=== PATIENT | male | born 1950 | race Caucasian/White ===

== ENCOUNTER 2016-11-05 14:43 | Observation (INO) | payer MEDICARE ==
[2016-11-05 14:49] VITALS: BP 86/53; PULSE 80; RESP 16; TEMP 97.5; O2SAT 96
[2016-11-05] MEDS ORDERED: LISI-515 PO (14:55)
[2016-11-05] MEDS ORDERED: METF500T PO (14:56)
[2016-11-05] MEDS ORDERED: LIPI40TA PO (14:56)
--- NOTE | 2016-11-05 15:10 | PD ---
HPI Chief Complaint: Syncope/Near-Syncope Time Seen by Provider: 15:01 Travel History International Travel<30 days: No Contact w/Intl Traveler<30days: No Traveled to known affect area: No History of Present Illness HPI This 65-year-old male is brought here after having a syncopal episode. He was walking on the beach today. He says he walks about 2-1/2 hours and he was sitting in the shade for a few hours. He went to walk back into his house and he got lightheaded and dizzy and he had a syncopal episode. His witnessed this and says he was unresponsive for a few seconds. He has a history of hypertension and is on lisinopril 20 mg. He has had a recent loss of weight. He did not have any chest pain. He has no complaint of pain now. He does say that yesterday he had some lower abdominal discomfort and is having some discomfort now. He lives in [place]. He was at the beach yesterday. He says he goes for regular blood work and has never been told of any problems with his kidneys. PFSH Past Medical History High Cholesterol: Yes Diabetes: Yes Patient Takes Glucophage: Yes Diminished Hearing: No Hypertension: Yes Immunizations Current: Yes ("SHINGLES") Tetanus Vaccination: Unknown Influenza Vaccination: Yes Past Surgical History Abdominal Surgery: Yes (HERNIA REPAIR) Social History Alcohol Use: Yes (OCC) Tobacco Use: No Substance Use: No Allergies-Medications (Allergen,Severity, Reaction): Coded Allergies: No Known Allergies (Unverified , 11/05/16) Reported Meds & Prescriptions Reported Meds & Active Scripts Active Reported Metformin (Metformin HCl) 500 Mg Tab 500 Mg PO BIDPC With meals Lipitor (Atorvastatin Calcium) 40 Mg Tab 40 Mg PO HS Lisinopril 20 Mg Tab 20 Mg PO DAILY Review of Systems General / Constitutional: No: Fever, Chills Eyes: No: Diploplia HENT: No: Headaches, Vertigo Cardiovascular: Positive: Syncope, No: Chest Pain or Discomfort, Palpitations , Irregular Rhythm Respiratory: No: Cough, Shortness of Breath Gastrointestinal: No: Vomiting, Diarrhea Genitourinary: No: Urgency, Frequency Musculoskeletal: No: Myalgias Neurologic: Positive: Weakness, Dizziness, Syncope Psychiatric: No: Anxiety Endocrine: No: Heat Intolerance, Cold Intolerance Hematologic/Lymphatic: No: Easy Bruising Physical Exam Narrative GENERAL: Well-developed male SKIN: Focused skin assessment warm/dry. HEAD: Atraumatic. Normocephalic. EYES: Pupils equal and round. No scleral icterus. No injection or drainage. ENT: No nasal bleeding or discharge. Mucous membranes pink and moist. NECK: Trachea midline. No JVD. CARDIOVASCULAR: Regular rate and rhythm. No murmur appreciated. RESPIRATORY: No accessory muscle use. Clear to auscultation. Breath sounds equal bilaterally. GASTROINTESTINAL: Abdomen soft, some mild lower abdominal tenderness, nondistended. Hepatic and splenic margins not palpable. MUSCULOSKELETAL: No obvious deformities. No clubbing. No cyanosis. No edema. NEUROLOGICAL: Awake and alert. No obvious cranial nerve deficits. Motor grossly within normal limits. Normal speech. PSYCHIATRIC: Appropriate mood and affect; insight and judgment normal. Data Data Last Documented VS Vital Signs Date Time Temp Pulse Resp B/P Pulse Ox O2 Delivery O2 Flow Rate FiO2 11/05/16 16:01 79 16 97/61 99 Room Air 107/55 11/05/16 14:49 97.5 Orders Electrocardiogram (11/05/16 15:01) Complete Blood Count With Diff (11/05/16 15:01) Basic Metabolic Panel (Bmp) (11/05/16 15:01) Sodium Chlor 0.9% 1000 Ml Inj (Ns 1000 M (11/05/16 15:15) Sodium Chlor 0.9% 1000 Ml Inj (Ns 1000 M (11/05/16 15:15) Troponin I (11/05/16 15:01) Ct Abd/Pel W/O Iv Contrast (11/05/16 16:15) Creatine Kinase (Cpk) (11/05/16 15:47) Sodium Chlor 0.9% 1000 Ml Inj (Ns 1000 M (11/05/16 16:30) Urinalysis - C+S If Indicated (11/05/16 16:34) Labs Laboratory Tests Test 11/05/16 15:47 White Blood Count 16.4 TH/MM3 Red Blood Count 4.50 MIL/MM3 Hemoglobin 14.4 GM/DL Hematocrit 42.1 % Mean Corpuscular Volume 93.5 FL Mean Corpuscular Hemoglobin 31.9 PG Mean Corpuscular Hemoglobin 34.1 % Concent Red Cell Distribution Width 12.9 % Platelet Count 326 TH/MM3 Mean Platelet Volume 7.3 FL Neutrophils (%) (Auto) 82.9 % Lymphocytes (%) (Auto) 7.3 % Monocytes (%) (Auto) 7.5 % Eosinophils (%) (Auto) 1.1 % Basophils (%) (Auto) 1.2 % Neutrophils # (Auto) 13.6 TH/MM3 Lymphocytes # (Auto) 1.2 TH/MM3 Monocytes # (Auto) 1.2 TH/MM3 Eosinophils # (Auto) 0.2 TH/MM3 Basophils # (Auto) 0.2 TH/MM3 CBC Comment AUTO DIFF Sodium Level 138 MEQ/L Potassium Level 5.3 MEQ/L Chloride Level 103 MEQ/L Carbon Dioxide Level 22.7 MEQ/L Anion Gap 12 MEQ/L Blood Urea Nitrogen 32 MG/DL Creatinine 2.40 MG/DL Estimat Glomerular Filtration 27 ML/MIN Rate Random Glucose 139 MG/DL Calcium Level 9.9 MG/DL Total Creatine Kinase 123 U/L Troponin I LESS THAN 0.02 NG/ML MDM Medical Decision Making Medical Screen Exam Complete: Yes Emergency Medical Condition: Yes Medical Record Reviewed: Yes Differential Diagnosis Differential includes dehydration, dysrhythmia, syncope dehydration Narrative Course Blood work is remarkable for BUNs of 32 and a creatinine of 2.4. A CT scan with contrast was originally ordered to assess his abdominal discomfort. This has been changed to 2 without contrast. Patient has no awareness of any kidney trouble and he is on metformin and lisinopril to have to be stopped. I have added a CK to assess for possible rhabdomyolysis Osman Bone MD Nov 05, 2016 15:10
[2016-11-05] MEDS ORDERED: SODIUM CHLOR 0.9% 1000 ML INJ 1,000 ML IV ONE ×3 (15:15→16:30)
[2016-11-05 16:00] LABS: CHLORIDE 103 MEQ/L (98-107); POTASSIUM 5.3 MEQ/L (3.5-5.1); SODIUM (NA) 138 MEQ/L (136-145)
[2016-11-05 16:01] VITALS: BP_SYST 107; BP_SYST 97; BP_DIAS 55; BP_DIAS 61; PULSE 79; RESP 16; O2SAT 99
[2016-11-05 16:04] LABS: ANION GAP 12 MEQ/L (5-15); BICARBONATE 22.7 MEQ/L (21.0-32.0); BLOOD UREA NITROGEN 32 MG/DL (7-18)
[2016-11-05 16:07] LABS: GLOMERULAR FILTRATION RATE 27 ML/MIN (>89)
[2016-11-05 16:12] LABS: AUTOMATED NEUTROPHIL # 13.6 TH/MM3 (1.8-7.7); BASOPHIL # 0.2 TH/MM3 (0-0.2); BASOPHIL % 1.2 % (0.0-2.0); EOSINOPHIL # 0.2 TH/MM3 (0-0.4); EOSINOPHIL % 1.1 % (0.0-4.0); HEMATOCRIT 42.1 % (39.0-51.0); LYMPH % 7.3 % (9.0-44.0); LYMPHOCYTE # 1.2 TH/MM3 (1.0-4.8); MEAN CELL VOLUME 93.5 FL (80.0-100.0); MEAN CORPUSCULAR HEMOGLOBIN 31.9 PG (27.0-34.0); MEAN CORPUSCULAR HGB CONC 34.1 % (32.0-36.0); MONO % 7.5 % (0.0-8.0); NEUT % 82.9 % (16.0-70.0); PLATELET COUNT 326 TH/MM3 (150-450); RED CELL DISTRIBUTION WIDTH 12.9 % (11.6-17.2); WHITE BLOOD COUNT 16.4 TH/MM3 (4.0-11.0)
[2016-11-05 16:16] LABS: HEMO FLAGS AUTO DIFF
[2016-11-05 16:37] LABS: CREATINE KINASE 123 U/L (39-308)
[2016-11-05 16:57] LABS: SCAN/DIFF AUTO DIFF CONFIRMED
--- NOTE | 2016-11-05 17:02 | RADRPT ---
EXAM DATE/TIME: 11/05/2016 16:19 [facility] COMPARISON: No previous studies available for comparison. INDICATIONS : Non specific abdominal pain. Syncopal episode on the beach. Evaluate for aneurysm. ORAL CONTRAST: No oral contrast ingested. RADIATION DOSE: 18.42 CTDIvol (mGy) MEDICAL HISTORY : Hypertension. Diabetes. SURGICAL HISTORY : Hernia repair. ENCOUNTER: Initial ACUITY: 1 day PAIN SCALE: 4/10 LOCATION: abdomen TECHNIQUE: Volumetric scanning of the abdomen and pelvis was performed. Using automated exposure control and ad justment of the mA and/or kV according to patient size, radiation dose was kept as low as reasonably achievable to obtain optimal diagnostic quality images. DICOM format image data is available electro nically for review and comparison. FINDINGS: LOWER LUNGS: The visualized lower lungs are clear. LIVER: Homogeneous density without lesion. There is no dilation of the biliary tree. No calcified gallston es. SPLEEN: Normal size without lesion. PANCREAS: Within normal limits. KIDNEYS: There are multiple nearly punctate calcified calyceal calculi bilaterally. A single larger calcified calculus in the inferior pole of the left kidney measuring up to 5 mm. No hydronephrosis or hydrouret er. Nonspecific mild perinephric stranding. ADRENAL GLANDS: Within normal limits. VASCULAR: Abdominal aorta is normal in caliber without evidence for aneurysm. Iliac arteries are also normal in caliber. BOWEL/MESENTERY: Appendix is visualized and normal in appearance. Moderate sigmoid diverticulosis without significant inflammatory change to suggest diverticulitis. Bowel is otherwise unremarkable. No evidence for obstr uction. ABDOMINAL WALL: Within normal limits. RETROPERITONEUM: There is no lymphadenopathy. BLADDER: No wall thickening or mass. REPRODUCTIVE: Within normal limits. INGUINAL: There is no lymphadenopathy or hernia. MUSCULOSKELETAL: Within normal limits for patient age. CONCLUSION: 1. No evidence for aortic aneurysm or retroperitoneal hemorrhage as questioned. 2. Multiple nonobstructing bilateral punctate calyceal renal calculi with a single larger calcified c alculus in the inferior left renal pole measuring up to 5 mm. No obstructive uropathy. 3. Normal appendix. Camilo Dobbins MD on November 05, 2016 at 16:50 Board Certified Radiologist. This report was verified electronically.
[2016-11-05 17:05] LABS: GLUCOSE,URINE NEG (NEG); KETONE, URINE 15 mg/dL (NEG); NITRITE,URINE NEG (NEG); PH, URINE 5.5 (5.0-8.5)
[2016-11-05 17:07] LABS: BLOOD, URINE MOD (NEG)
[2016-11-05 17:11] LABS: URINE COLOR YELLOW (YELLW/STRAW)
[2016-11-05 17:12] LABS: HYALINE CAST, URINE 15-19 /lpf (RARE)
[2016-11-05 17:14] LABS: BACTERIA, URINE FEW /hpf; COMMENT (UR) CULTURE INDICATED; CULTURE IF INDICATED CULTURE INDICATED; SQUAMOUS EPITHELIAL CELL URINE 0-5 /hpf (0-5)
[2016-11-05 17:37] VITALS: BP 107/50; PULSE 84; RESP 18; O2SAT 98
[2016-11-05] MEDS ORDERED: DEXTROSE 50% IN WATER 50 ML VIAL(D50) IV PRN (18:00)
[2016-11-05] MEDS ORDERED: SODIUM CHLORIDE 0.9% FLUSH 10 ML FLUSH IV FLUSH PRN (18:00)
[2016-11-05] MEDS ORDERED: GLUCAGON 1 MG/ML VIAL OTHER PRN (18:00)
--- NOTE | 2016-11-05 18:01 | PD ---
Data Data Last Documented VS Vital Signs Date Time Temp Pulse Resp B/P Pulse Ox O2 Delivery O2 Flow Rate FiO2 11/05/16 17:37 84 18 107/50 98 Room Air 11/05/16 14:49 97.5 Orders Electrocardiogram (11/05/16 15:01) Complete Blood Count With Diff (11/05/16 15:01) Basic Metabolic Panel (Bmp) (11/05/16 15:01) Sodium Chlor 0.9% 1000 Ml Inj (Ns 1000 M (11/05/16 15:15) Sodium Chlor 0.9% 1000 Ml Inj (Ns 1000 M (11/05/16 15:15) Troponin I (11/05/16 15:01) Ct Abd/Pel W/O Iv Contrast (11/05/16 16:15) Creatine Kinase (Cpk) (11/05/16 15:47) Sodium Chlor 0.9% 1000 Ml Inj (Ns 1000 M (11/05/16 16:30) Urinalysis - C+S If Indicated (11/05/16 16:34) Urine Culture (11/05/16 16:50) Labs Laboratory Tests Test 11/05/16 11/05/16 15:47 16:50 White Blood Count 16.4 TH/MM3 Red Blood Count 4.50 MIL/MM3 Hemoglobin 14.4 GM/DL Hematocrit 42.1 % Mean Corpuscular Volume 93.5 FL Mean Corpuscular Hemoglobin 31.9 PG Mean Corpuscular Hemoglobin 34.1 % Concent Red Cell Distribution Width 12.9 % Platelet Count 326 TH/MM3 Mean Platelet Volume 7.3 FL Neutrophils (%) (Auto) 82.9 % Lymphocytes (%) (Auto) 7.3 % Monocytes (%) (Auto) 7.5 % Eosinophils (%) (Auto) 1.1 % Basophils (%) (Auto) 1.2 % Neutrophils # (Auto) 13.6 TH/MM3 Lymphocytes # (Auto) 1.2 TH/MM3 Monocytes # (Auto) 1.2 TH/MM3 Eosinophils # (Auto) 0.2 TH/MM3 Basophils # (Auto) 0.2 TH/MM3 CBC Comment AUTO DIFF Differential Comment AUTO DIFF CONFIRMED Sodium Level 138 MEQ/L Potassium Level 5.3 MEQ/L Chloride Level 103 MEQ/L Carbon Dioxide Level 22.7 MEQ/L Anion Gap 12 MEQ/L Blood Urea Nitrogen 32 MG/DL Creatinine 2.40 MG/DL Estimat Glomerular Filtration 27 ML/MIN Rate Random Glucose 139 MG/DL Calcium Level 9.9 MG/DL Total Creatine Kinase 123 U/L Troponin I LESS THAN 0.02 NG/ML Urine Color YELLOW Urine Turbidity HAZY Urine pH 5.5 Urine Specific [place] 1.022 Urine Protein 30 mg/dL Urine Glucose (UA) NEG mg/dL Urine Ketones 15 mg/dL Urine Occult Blood MOD Urine Nitrite NEG Urine Bilirubin NEG Urine Leukocyte Esterase NEG Urine RBC 4-9 /hpf Urine WBC 9-14 /hpf Urine Squamous Epithelial 0-5 /hpf Cells Urine Bacteria FEW /hpf Urine Hyaline Casts 15-19 /lpf Microscopic Urinalysis Comment CULTURE INDICATED MDM Supervised Visit with [facility]: No Narrative Course This case is checked out to me by Dr. Quiñones at [address] Quiñones recommended telemetry observation after workup complete. I reviewed his abdominal CT which shows no aneurysm or emergent findings. Metabolic profile reveals renal insufficiency with creatinine 2.4. Patient reports this is not something he has a history of. After 3 L of saline his blood pressure went from 80 systolic to 110 systolic I reviewed with hospitalist who will observe him on telemetry for syncope with hypotensive episode and renal insufficiency Diagnosis Primary Impression: Syncope Qualified Code: R55 - Syncope, unspecified syncope type Additional Impressions: Hypotensive episode Renal insufficiency Admitting Information Admitting Physician Requests: Observation Thierry Magallon MD Nov 05, 2016 18:01
[2016-11-05 19:00] VITALS: BP 128/63; PULSE 88; RESP 18; TEMP 98; O2SAT 97
--- NOTE | 2016-11-05 19:13 | HHI.HP ---
[facility] Non-Staff Admission Diagnosis syncope,renal insuff,hypotensive episode Diagnoses: Chief Complaint: Syncopal episode Travel History International Travel<30 Days: No Contact w/Intl Traveler <30 Da: No Traveled to Known Affected Are: No Sepsis Criteria SIRS Criteria (2 or more): WBC > 05263, < 4000 or > 10% bands (or ptosis) Severe Sepsis (+one): Hypoperfusion History of Present Illness Patient is a 65-year-old gentleman with a history of hypertension. He reports being in his usual state of health until 2 days ago when he felt some gastrointestinal nonspecific discomfort. Patient denies nausea or vomiting or diarrhea but says his intestinal tract felt "uncomfortable". Patient then had 2 days in which she ambulated at least 3 miles on the beach with his . At the end of today's exercise session patient felt lightheaded and dizzy and felt he was going to pass out and he did. Patient had bystanders around who were able to assist and 911 was called patient was brought to the hospital. He has evidence of UTI with acute kidney injury and leukocytosis and has been quite hypotensive since his arrival. He has had decreased urine output over the last 24 hours for his spouse. He is given 3 L of normal saline with minimal urine output since his arrival. Patient notes no chest pain or shortness of breath. He is not dizzy any longer. He is admitted in observation for further evaluation. Past Family Social History Allergies: Coded Allergies: No Known Allergies (Unverified , 11/05/16) Physical Exam Vital Signs Vital Signs Date Time Temp Pulse Resp B/P Pulse Ox O2 Delivery O2 Flow Rate FiO2 11/05/16 17:37 84 18 107/50 98 Room Air 11/05/16 16:01 79 16 97/61 99 Room Air 107/55 11/05/16 14:51 77 16 96 11/05/16 14:49 97.5 80 16 86/53 96 Physical Exam GENERAL: This is a well-nourished, well-developed patient, in no apparent distress. SKIN: No rashes, ecchymoses or lesions. Cool and dry. HEAD: Atraumatic. Normocephalic. No temporal or scalp tenderness. EYES: Pupils equal round and reactive. Extraocular motions intact. No scleral icterus. No injection or drainage. ENT: Nose without bleeding, purulent drainage or septal hematoma. Throat without erythema, tonsillar hypertrophy or exudate. Uvula midline. Airway patent. NECK: Trachea midline. No JVD or lymphadenopathy. Supple, nontender, no meningeal signs. CARDIOVASCULAR: Regular rate and rhythm without murmurs, gallops, or rubs. RESPIRATORY: Clear to auscultation. Breath sounds equal bilaterally. No wheezes , rales, or rhonchi. GASTROINTESTINAL: Abdomen soft, non-tender, nondistended. No hepato-splenomegaly , or palpable masses. No guarding. MUSCULOSKELETAL: Extremities without clubbing, cyanosis, or edema. No joint tenderness, effusion, or edema noted. No calf tenderness. Negative Homans sign bilaterally. NEUROLOGICAL: Awake and alert. Cranial nerves II through XII intact. Motor and sensory grossly within normal limits. Five out of 5 muscle strength in all muscle groups. Normal speech. Laboratory Laboratory Tests Test 11/05/16 11/05/16 15:47 16:50 White Blood Count 16.4 Red Blood Count 4.50 Hemoglobin 14.4 Hematocrit 42.1 Mean Corpuscular Volume 93.5 Mean Corpuscular Hemoglobin 31.9 Mean Corpuscular Hemoglobin 34.1 Concent Red Cell Distribution Width 12.9 Platelet Count 326 Mean Platelet Volume 7.3 Neutrophils (%) (Auto) 82.9 Lymphocytes (%) (Auto) 7.3 Monocytes (%) (Auto) 7.5 Eosinophils (%) (Auto) 1.1 Basophils (%) (Auto) 1.2 Neutrophils # (Auto) 13.6 Lymphocytes # (Auto) 1.2 Monocytes # (Auto) 1.2 Eosinophils # (Auto) 0.2 Basophils # (Auto) 0.2 CBC Comment AUTO DIFF Differential Comment AUTO DIFF CONFIRMED Sodium Level 138 Potassium Level 5.3 Chloride Level 103 Carbon Dioxide Level 22.7 Anion Gap 12 Blood Urea Nitrogen 32 Creatinine 2.40 Estimat Glomerular Filtration 27 Rate Random Glucose 139 Calcium Level 9.9 Total Creatine Kinase 123 Troponin I LESS THAN 0.02 Urine Color YELLOW Urine Turbidity HAZY Urine pH 5.5 Urine Specific [place] 1.022 Urine Protein 30 Urine Glucose (UA) NEG Urine Ketones 15 Urine Occult Blood MOD Urine Nitrite NEG Urine Bilirubin NEG Urine Leukocyte Esterase NEG Urine RBC 4-9 Urine WBC 9-14 Urine Squamous Epithelial 0-5 Cells Urine Bacteria FEW Urine Hyaline Casts 15-19 Microscopic Urinalysis Comment CULTURE INDICATED Date/Time Procedure Status Source Growth 11/05/16 16:50 Urine Culture Received Urine Clean Catch Pending Result Diagram: 11/05/16 1547 11/05/16 1547 Assessment and Plan Problem List: (1) Hypotensive episode ICD Code: I95.9 Status: Acute Plan: Rule out sepsis versus orthostasis Recent gastrointestinal discomfort and now with acute kidney injury, leukocytosis and hypotension Blood and urine cultures pending Follow-up orthostatic vital signs and continue with Rocephin (2) Renal insufficiency ICD Code: N28.9 Status: Acute Plan: Etiology unclear rule out infection, renal ultrasound pending Multiple nonobstructing renal calculi on CT Patient also hyperkalemic with a potassium of 5.3 and I will repeat and treat accordingly (3) UTI (urinary tract infection) ICD Code: N39.0 Status: Acute Plan: IV Rocephin and follow cultures Assessment and Plan Plan of care to be determined by Hospital course Code Status Full code Discussed Condition With ER Maryam, patient and spouse and FINANCIAL PROCESSING CLERK Bibiana Diallo MD Nov 05, 2016 19:13
[2016-11-05 20:00] VITALS: BP_SYST 142; BP_SYST 150; BP_SYST 174; BP_DIAS 79; BP_DIAS 84; BP_DIAS 90; PULSE 81; PULSE 89; PULSE 91; RESP 20; TEMP 96.9; TEMP 97.5; TEMP 97.8; O2SAT 93; O2SAT 97; O2SAT 98
[2016-11-05] MEDS ORDERED: cefTRIAXone INJ 1,000 MG in SODIUM CHLORIDE 0.9% INJ 100 ML IV SCH (20:00)
[2016-11-05 20:28] LABS: POTASSIUM 5.1 MEQ/L (3.5-5.1)
[2016-11-05 20:32] LABS: BICARBONATE 24.4 MEQ/L (21.0-32.0)
[2016-11-05 20:36] LABS: INDIRECT BILIRUBIN 0.5 MG/DL (0.0-0.8); TOTAL BILIRUBIN ADULT 0.7 MG/DL (0.2-1.0)
[2016-11-05] MEDS ORDERED: ATORVASTATIN 40 MG TAB PO SCH (21:00)
--- NOTE | 2016-11-05 21:42 | RADRPT ---
EXAM DATE/TIME: 11/05/2016 21:02 [facility] COMPARISON: No previous studies available for comparison. INDICATIONS : Increased lab values. MEDICAL HISTORY : Hypercholesterolemia. Hypertension. Diabetic. SURGICAL HISTORY : Hernia repair. ENCOUNTER: Initial ACUITY: 1 day PAIN SCORE: 0/10 LOCATION: Bilateral flank MEASUREMENTS: RIGHT KIDNEY: 11.8 x 5.8 x 7.1 cm LEFT KIDNEY: 10.8 x 5.7 x 6.3 cm FINDINGS: RIGHT KIDNEY: Renal cortex is normal in thickness and echotexture. No hydronephrosis, stone, or mass. LEFT KIDNEY: Renal cortex is normal in thickness and echotexture. No hydronephrosis, stone, or mass. BLADDER: Smooth margins. Nondistended.. CONCLUSION: Negative renal ultrasound. Mitchell Da Silva MD on November 05, 2016 at 21:39 Board Certified Radiologist. This report was verified electronically.
[2016-11-05] MEDS: INSULIN ASPART SUPPLEMENTAL SCALE SQ SCH (22:29)
[2016-11-05] MEDS: SODIUM CHLORIDE 0.9% FLUSH 10 ML FLUSH IV FLUSH SCH (22:30)
[2016-11-06] VITALS: BP 125/78; PULSE 75; RESP 20; TEMP 96.6; O2SAT 95
[2016-11-06 06:27] LABS: AUTOMATED NEUTROPHIL # 6.9 TH/MM3 (1.8-7.7); BASOPHIL # 0.1 TH/MM3 (0-0.2); BASOPHIL % 0.5 % (0.0-2.0); EOSINOPHIL # 0.5 TH/MM3 (0-0.4); EOSINOPHIL % 4.7 % (0.0-4.0); HEMATOCRIT 40.9 % (39.0-51.0); HEMO FLAGS DIFF FINAL; LYMPH % 16.8 % (9.0-44.0); LYMPHOCYTE # 1.7 TH/MM3 (1.0-4.8); MEAN CELL VOLUME 93.1 FL (80.0-100.0); MEAN CORPUSCULAR HGB CONC 33.3 % (32.0-36.0); MONO % 9.3 % (0.0-8.0); NEUT % 68.7 % (16.0-70.0); PLATELET COUNT 340 TH/MM3 (150-450); RED BLOOD COUNT 4.39 MIL/MM3 (4.50-5.90); WHITE BLOOD COUNT 10.1 TH/MM3 (4.0-11.0)
[2016-11-06] MEDS: INSULIN ASPART SUPPLEMENTAL SCALE SQ SCH (06:28)
[2016-11-06 06:48] LABS: POTASSIUM 4.3 MEQ/L (3.5-5.1)
[2016-11-06 06:52] LABS: BICARBONATE 22.8 MEQ/L (21.0-32.0)
[2016-11-06 08:00] VITALS: BP_SYST 121; BP_SYST 126; BP_SYST 132; BP_DIAS 78; BP_DIAS 80; BP_DIAS 87; PULSE 71; RESP 18; TEMP 97.7; O2SAT 96
[2016-11-06] MEDS ORDERED: LISINOPRIL 20 MG TAB PO SCH (09:00)
[2016-11-06] MEDS: SODIUM CHLORIDE 0.9% FLUSH 10 ML FLUSH IV FLUSH SCH (09:40)
[2016-11-06] MEDS ORDERED: CIPR500T2 PO (09:42)
--- NOTE | 2016-11-06 09:46 | HHI.PR ---
Subjective Remarks Patient seen today in follow-up for UTI and hypotension. Hypotension resolved with aggressive hydration, acute kidney injury resolved with aggressive hydration Hyperkalemia resolved UTI discussed with patient and spouse at bedside and discharge plans discussed with patient Objective Vitals Vital Signs Date Time Temp Pulse Resp B/P Pulse Ox O2 Delivery O2 Flow Rate FiO2 11/06/16 08:00 97.7 71 18 121/78 96 132/87 126/80 11/06/16 00:00 96.6 75 20 125/78 95 11/05/16 20:00 97.5 81 20 142/79 98 11/05/16 20:00 96.9 89 20 150/84 97 11/05/16 20:00 97.8 91 20 174/90 93 11/05/16 19:00 98.0 88 18 128/63 97 Room Air 11/05/16 19:00 88 18 97 Room Air 11/05/16 17:37 84 18 107/50 98 Room Air 11/05/16 16:01 79 16 97/61 99 Room Air 107/55 11/05/16 14:51 77 16 96 11/05/16 14:49 97.5 80 16 86/53 96 I/O 11/05/16 11/05/16 11/05/16 11/06/16 11/06/16 11/06/16 07:00 15:00 23:00 07:00 15:00 23:00 Intake Total 3120 ml 240 ml Balance 3120 ml 240 ml Intake Oral 120 ml 240 ml IV Total 3000 ml # Voids 4 Result Diagram: 11/06/16 0600 11/06/16 0600 Imaging Last Impressions Abdomen/Pelvis CT 11/05/16 1615 Signed Impressions: Service Date/Time: Saturday, November 05, 2016 16:19 - CONCLUSION: 1. No evidence for aortic aneurysm or retroperitoneal hemorrhage as questioned. 2. Multiple nonobstructing bilateral punctate calyceal renal calculi with a single larger calcified calculus in the inferior left renal pole measuring up to 5 mm. No obstructive uropathy. 3. Normal appendix. Camilo Dobbins MD Renal Ultrasound 11/05/16 0000 Signed Impressions: Service Date/Time: Saturday, November 05, 2016 21:02 - CONCLUSION: Negative renal ultrasound. Mitchell Da Silva MD Objective Remarks GENERAL: This is a well-nourished, well-developed patient, in no apparent distress. CARDIOVASCULAR: Regular rate and rhythm without murmurs, gallops, or rubs. RESPIRATORY: Clear to auscultation. Breath sounds equal bilaterally. No wheezes , rales, or rhonchi. GASTROINTESTINAL: Abdomen soft, non-tender, nondistended. Normal active bowel sounds MUSCULOSKELETAL: Extremities without clubbing, cyanosis, or edema. NEURO: Alert & Oriented x4 to person, place, time, situation. Moves all ext x4 A/P Problem List: (1) Hypotensive episode ICD Code: I95.9 Status: Acute Plan: Likely orthostatic with resolution of hypotension and leukocytosis, likely volume contracted (2) Renal insufficiency ICD Code: N28.9 Status: Acute Plan: Resolved after IV fluids Hyperkalemia resolved (3) UTI (urinary tract infection) ICD Code: N39.0 Status: Acute Plan: Cipro by mouth Assessment and Plan Discharge home Activity unrestricted Follow-up primary care physician Bibiana Diallo MD Nov 06, 2016 09:45
--- NOTE | 2016-11-06 09:47 | HHI.DCPOC ---
Discharge Care Plan Diagnosis: (1) Syncope (2) Renal insufficiency (3) UTI (urinary tract infection) Goals to Promote Your Health * To prevent worsening of your condition and complications * To maintain your health at the optimal level Directions to Meet Your Goals Take your medications as prescribed Follow your dietary instruction Follow activity as directed Keep your appointments as scheduled Take your immunizations and boosters as scheduled If your symptoms worsen call your PCP, if no PCP go to Urgent Care Center or Emergency Room Smoking is Dangerous to Your Health. Avoid second hand smoke Call the 24-hour hour crisis hotline for domestic abuse at Bibiana Diallo MD Nov 06, 2016 09:47
--- NOTE | 2016-11-06 13:26 | EKG ---
Date Performed: 11/05/2016 Time Performed: 15:09:49 PTAGE: 65 years EKG: Sinus rhythm MARKED LEFT AXIS DEVIATION PATTERN CONSISTENT WITH PULMONARY DISEASE ABNORMAL ECG NO PREVIOUS TRACING DOCTOR: Anirudh Harris Interpretating Date/Time 11/06/2016 13:19:54
== END 2016-11-06 10:30 | disposition home or self-care (01) ==
LOC: PHED 14:43 → PHEDA 18:02 → PH3A 20:31
PROVIDERS: ADMIT Hospitalist; ATTEND Hospitalist
DX: I95.9 Hypotension, unspecified (principal); N28.9 Disorder of kidney and ureter, unspecified; N39.0 Urinary tract infection, site not specified; E87.5 Hyperkalemia; R55 Syncope and collapse; R42 Dizziness and giddiness; N17.9 Acute kidney failure, unspecified; R10.9 Unspecified abdominal pain; N20.0 Calculus of kidney; R94.31 Abnormal electrocardiogram [ECG] [EKG]; I10 Essential (primary) hypertension; E11.9 Type 2 diabetes mellitus without complications; E78.00 Pure hypercholesterolemia, unspecified; Z79.899 Other long term (current) drug therapy; Z79.84 Long term (current) use of oral hypoglycemic drugs
CPT/HCPCS: 74176; 76775; 80048; 80076; 81001; 82550; 82948; 83605; 84484; 85025; 87040; 87086; 93005; 96360; 99285; G0378; J0696; J7030; J1815